=== PATIENT | female | born 1990 | race Two or more races ===

== ENCOUNTER 2020-03-21 15:30 | Observation (INO) | payer OTHER ==
[~2020-03-21] VITALS: Ht 170.2 cm; Wt 116.3 kg
[2020-03-21 16:42] VITALS: BP 123/64
[2020-03-21] MEDS ORDERED: PREN-217 PO (17:18)
[2020-03-29] MEDS ORDERED: IBUP-2071 PO ×2 (08:47)
[2020-03-29] MEDS ORDERED: DOCU-275 PO (08:48)
[2020-03-29] MEDS ORDERED: PERCT PO (08:51)
== END 2020-03-21 17:15 | disposition home or self-care (01) ==
LOC: 4S 16:12
PROVIDERS: ADMIT Obstetrics & Gynecology; ATTEND Obstetrics & Gynecology
DX: O26.893 Other specified pregnancy related conditions, third trimester (principal); Z87.891 Personal history of nicotine dependence; Z3A.37 37 weeks gestation of pregnancy
CPT/HCPCS: 59025; 76811; 99219

== ENCOUNTER 2020-03-25 09:10 | Observation (INO) | payer OTHER ==
[~2020-03-25] VITALS: Ht 170.2 cm; Wt 117.5 kg
[~2020-03-25 09:10] MED LIST: PREN-217 PO
[2020-03-25 09:45] VITALS: BP 127/77
[2020-03-29] MEDS ORDERED: IBUP-2071 PO ×2 (08:47)
[2020-03-29] MEDS ORDERED: DOCU-275 PO (08:48)
[2020-03-29] MEDS ORDERED: PERCT PO (08:51)
== END 2020-03-25 11:35 | disposition home or self-care (01) ==
LOC: 4S 09:10
PROVIDERS: ADMIT Obstetrics & Gynecology; ATTEND Obstetrics & Gynecology
DX: O36.5930 Maternal care for other known or suspected poor fetal growth, third trimester, not applicable or unspecified (principal); Z20.828 Contact with and (suspected) exposure to other viral communicable diseases; Z3A.37 37 weeks gestation of pregnancy
CPT/HCPCS: 59025; 76805; 87426; 99219